=== PATIENT | male | born 2000 | race Caucasian/White ===

== ENCOUNTER 2023-08-31 10:10 | Emergency (ER) | payer OTHER ==
[2023-08-31 10:48] VITALS: BP 144/85; O2SAT 100
--- NOTE | 2023-08-31 11:56 | XRAY Report ---
PROCEDURE: Wrist 3+V RT INDICATIONS: trauma TECHNIQUE: 4 views of the wrist were acquired. COMPARISON: None. FINDINGS: Bones: No fractures or dislocations. No suspicious bony lesions. Soft tissues: No suspicious soft tissue calcifications or masses. IMPRESSION: No acute bony abnormality. Reviewed by: Casie Wahl MD, PhD on 08/31/2023 11:55 AM PDT Approved by: Casie Wahl MD, PhD on 08/31/2023 11:55 AM PDT Station ID: [id number]
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
[2023-08-31] MEDS: ACETAMINOPHEN 500 MG TABLET PO STA (12:59)
[2023-08-31] MEDS: IBUPROFEN 600 MG TABLET PO STA (12:59)
== END 2023-08-31 13:10 | disposition home or self-care (01) ==
LOC: ED 10:10
DX: S63.601A Unspecified sprain of right thumb, initial encounter (principal); V00.141A Fall from scooter (nonmotorized), initial encounter; F17.290 Nicotine dependence, other tobacco product, uncomplicated
CPT/HCPCS: 73110; 99283; 99284; A9270

== ENCOUNTER 2023-11-23 11:30 | Outpatient (CLI) | payer OTHER ==
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
== END 2023-11-23 11:31 | disposition home or self-care (01) ==
LOC: DI 11:30
PROVIDERS: ATTEND Physician Assistant Surgical
DX: S62.211A Bennett's fracture, right hand, initial encounter for closed fracture (principal)